=== PATIENT | female | born 1990 | race Caucasian/White ===

== ENCOUNTER → 2018-03-10 | Outpatient (CLI) | payer BC | LOC: FIMAGING 09:41 | PROVIDERS: ATTEND Obstetrics & Gynecology | DX: O09.292 Supervision of pregnancy with other poor reproductive or obstetric history, second trimester (principal); O99.342 Other mental disorders complicating pregnancy, second trimester; O99.322 Drug use complicating pregnancy, second trimester; Z3A.19 19 weeks gestation of pregnancy; F90.9 Attention-deficit hyperactivity disorder, unspecified type ==

== ENCOUNTER → 2018-05-29 | Outpatient (CLI) | payer BC | LOC: FIMAGING 09:02 | PROVIDERS: ATTEND Obstetrics & Gynecology | DX: Z34.90 Encounter for supervision of normal pregnancy, unspecified, unspecified trimester (principal); Z3A.31 31 weeks gestation of pregnancy ==